=== PATIENT | male | born 1960 | race Caucasian/White ===

== ENCOUNTER 2019-04-22 08:42 | Emergency (ER) | payer OTHER ==
[~2019-04-22] VITALS: Ht 170.1 cm; Wt 71.0 kg
[2019-04-22] MEDS ORDERED: ACETAMINOPHEN 325 MG TABLET PO ONE (09:00)
[2019-04-22] MEDS ORDERED: METOCLOPRAMIDE 10 MG (REGLAN) TAB PO ONE (09:00)
[2019-04-22] MEDS ORDERED: NS IV 1000 ML 1,000 ML IV SCH (09:08)
--- NOTE | 2019-04-22 09:08 | ED Cardiac General ---
History of Present Illness General Stated Complaint: NAUSEA History of Present Illness Date Seen by Provider: Apr 22, 2019 Time Seen by Provider: 08:50 Initial Comments The patient is a 58-year-old male with a history of chronic right shoulder pain for which he takes periodic [place]. Patient presents via EMS with a chief complaint of nausea with onset last evening. Patient states he was in his normal state of health and had dinner without any problems and then took a [place] 10/325 for his chronic shoulder pain. After that he noted that he was nauseated. He did not frankly vomit. He had no other symptoms at that time. He then went to bed. When he woke up he was still nauseated so he decided to call EMS. He was administered Zofran sublingually in route per EMS and his nausea resolved. Currently the patient states that he has no symptoms at all aside from a slightly unsettled feeling in his stomach. He denies any fevers, nausea or vomiting, headache, focal weakness, numbness, tingling, neck stiffness, vision changes, shortness of breath or chest pain, abdominal pain of any kind, flank pain, back pain, dysuria or hematuria, changes in bowel habits. Patient appears in no distress and vital signs are appropriate upon initial evaluation in the emergency department. The patient is noted to nod off at times during conversation and seems a little sleepy. Pupils are rather pinpoint. Patient does deny taking any [place] aside from last evening. EMS state that they think he may have taken more [place] than he is admitting to. Allergies and Home Medications Allergies Coded Allergies: No Known Drug Allergies (Unverified , 04/22/19) Patient Home Medication List Home Medication List Reviewed: Yes Review of Systems Review of Systems Constitutional: see HPI All Other Systems Reviewed Negative Unless Noted: Yes (Negative excepted noted.) Past Erccrgk-Kdjefz-Ugaogj Hx Past Med/Social Hx: Reviewed Nursing Past Med/Soc Hx Patient Social History Recent Foreign Travel: No Family Medical History Reviewed Nursing Family Hx Physical Exam Vital Signs Vital Signs - First Documented 04/22/19 08:51 Temp 36.4 Pulse 74 Resp 18 B/P (MAP) 123/91 (102) Pulse Ox 99 O2 Delivery Room Air Capillary Refill : Height, Weight, BMI Height: '" Weight: lbs. oz. kg; BMI Method: General Appearance: No Apparent Distress Other comments This is an older male appearing nontoxic and in no acute distress. He seems a little sleepy but answers questions completely appropriately. Head is normocephalic and atraumatic. Neck is supple and nontender. Oropharynx is moist. Lungs clear to auscultation in all stations. There is a normal S1 and S2 without rubs or gallops and capillary refill is appropriate, less than 2 seconds globally. Abdomen is soft, nontender and nondistended. Skin is warm and dry without cyanosis, clubbing or edema. Psychiatrically, the patient demonstrates appropriate mood and affect and is alert. Neurologically, cranial nerves II through XII are intact and there are no lateralizing deficits noted. Speech is normal. Language is normal. Coordination is normal. There is no dysmetria finger to nose or [id number] bilaterally. Strength is 5 out of 5 in all joints of bilateral upper and lower extremities. Sensation is intact to light touch in bilateral upper and lower extremities. Patient ambulatory with a narrow, steady gait in the emergency department is is alert and oriented 4, though a little sleepy as noted. Examination of the left upper extremity is remarkable for mild tenderness without erythema, warmth or swelling to the left shoulder. No limitation in ranging of the left shoulder and no pain with ranging of any other joint of the left upper extremity which is neurovascularly intact distally. Progress/Results/Core Measures Results/Orders Lab Results Laboratory Tests Test 04/22/19 09:00 04/22/19 11:25 Range/Units White Blood Count 8.0 4.3-11.0 10^3/uL Red Blood Count 4.78 4.35-5.85 10^6/uL Hemoglobin 13.7 13.3-17.7 G/DL Hematocrit 43 40-54 % Mean Corpuscular Volume 89 80-99 FL Mean Corpuscular Hemoglobin 29 25-34 PG Mean Corpuscular Hemoglobin Concent 32 32-36 G/DL Red Cell Distribution Width 13.1 10.0-14.5 % Platelet Count 304 130-400 10^3/uL Mean Platelet Volume 8.4 7.4-10.4 FL Neutrophils (%) (Auto) 69 42-75 % Lymphocytes (%) (Auto) 20 12-44 % Monocytes (%) (Auto) 6 0-12 % Eosinophils (%) (Auto) 4 0-10 % Basophils (%) (Auto) 1 0-10 % Neutrophils # (Auto) 5.5 1.8-7.8 X 10^3 Lymphocytes # (Auto) 1.6 1.0-4.0 X 10^3 Monocytes # (Auto) 0.5 0.0-1.0 X 10^3 Eosinophils # (Auto) 0.3 0.0-0.3 10^3/uL Basophils # (Auto) 0.1 0.0-0.1 10^3/uL Sodium Level 137 135-145 MMOL/L Potassium Level 4.2 3.6-5.0 MMOL/L Chloride Level 101 98-107 MMOL/L Carbon Dioxide Level 26 21-32 MMOL/L Anion Gap 10 5-14 MMOL/L Blood Urea Nitrogen 12 7-18 MG/DL Creatinine 1.05 0.60-1.30 MG/DL Estimat Glomerular Filtration Rate > 60 BUN/Creatinine Ratio 11 Glucose Level 108 H 70-105 MG/DL Calcium Level 9.2 8.5-10.1 MG/DL Corrected Calcium 9.1 8.5-10.1 MG/DL Total Bilirubin 0.5 0.1-1.0 MG/DL Aspartate Amino Transf (AST/SGOT) 23 5-34 U/L Alanine Aminotransferase (ALT/SGPT) 14 0-55 U/L Alkaline Phosphatase 99 40-136 U/L Troponin I < 0.30 <0.30 NG/ML Total Protein 7.0 6.4-8.2 GM/DL Albumin 4.1 3.2-4.5 GM/DL Lipase 18 8-78 U/L Salicylates Level < 0.3 L 5.0-20.0 MG/DL Acetaminophen Level < 10 L 10-30 UG/ML Serum Alcohol < 10 <10 MG/DL Urine Color YELLOW Urine Clarity CLEAR Urine pH 6.5 5-9 Urine Specific [place] 1.020 1.016-1.022 Urine Protein NEGATIVE NEGATIVE Urine Glucose (UA) NEGATIVE NEGATIVE Urine Ketones NEGATIVE NEGATIVE Urine Nitrite NEGATIVE NEGATIVE Urine Bilirubin NEGATIVE NEGATIVE Urine Urobilinogen 0.2 < = 1.0 MG/DL Urine Leukocyte Esterase NEGATIVE NEGATIVE Urine RBC (Auto) NEGATIVE NEGATIVE Urine RBC NONE /HPF Urine WBC 0-2 /HPF Urine Squamous Epithelial Cells 0-2 /HPF Urine Crystals NONE /LPF Urine Bacteria NEGATIVE /HPF Urine Casts NONE /LPF Urine Mucus MODERATE H /LPF Urine Other FEW SPERM H /HPF Urine Culture Indicated NO Urine Opiates Screen NEGATIVE NEGATIVE Urine Oxycodone Screen NEGATIVE NEGATIVE Urine Methadone Screen NEGATIVE NEGATIVE Urine Propoxyphene Screen NEGATIVE NEGATIVE Urine Barbiturates Screen NEGATIVE NEGATIVE Ur Tricyclic Antidepressants Screen NEGATIVE NEGATIVE Urine Phencyclidine Screen NEGATIVE NEGATIVE Urine Amphetamines Screen POSITIVE H NEGATIVE Urine Methamphetamines Screen NEGATIVE NEGATIVE Urine Benzodiazepines Screen NEGATIVE NEGATIVE Urine Cocaine Screen NEGATIVE NEGATIVE Urine Cannabinoids Screen NEGATIVE NEGATIVE My Orders Orders - BURTON ASTORGA MD Comprehensive Metabolic Panel (04/22/19 09:00) Troponin I Fs (04/22/19 09:00) Ekg Tracing (04/22/19 09:00) Acetaminophen Tablet/Caplet (Tylenol T (04/22/19 09:00) Cbc With Automated Diff (04/22/19 09:08) Naloxone Injection (Narcan Injection) (04/22/19 09:15) Ketorolac Injection (Toradol Injection) (04/22/19 09:15) Metoclopramide Injection (Reglan Injecti (04/22/19 09:15) Ed Iv/Invasive Line Start (04/22/19 09:08) Ns Iv 1000 Ml (Sodium Chloride 0.9%) (04/22/19 09:08) Lipase (04/22/19 09:21) Ct Head Wo (04/22/19 09:40) Acetaminophen (04/22/19 09:40) Salicylate (04/22/19 09:40) Alcohol (04/22/19 09:40) Drug Screen Stat (Urine) (04/22/19 09:40) Chest 1 View Ap/Pa Only (04/22/19 09:40) Ua Culture If Indicated (04/22/19 09:40) Medications Given in ED Current Medications Medications Dose Ordered Sig/Mary Ellen Route Start Time Stop Time Status Last Admin Dose Admin Acetaminophen 975 mg ONCE ONCE PO 04/22/19 09:00 04/22/19 09:03 DC 04/22/19 09:13 975 MG Ketorolac Tromethamine 30 mg ONCE ONCE IVP 04/22/19 09:15 04/22/19 09:16 DC 04/22/19 09:20 30 MG Metoclopramide HCl 10 mg ONCE ONCE IVP 04/22/19 09:15 04/22/19 09:16 DC 04/22/19 09:20 10 MG Naloxone HCl 0.4 mg ONCE ONCE IV 04/22/19 09:15 04/22/19 09:16 DC 04/22/19 09:26 0.4 MG Vital Signs/I&O 04/22/19 08:51 Temp 36.4 Pulse 74 Resp 18 B/P (MAP) 123/91 (102) Pulse Ox 99 O2 Delivery Room Air Progress Progress Note : Time: 09:18 Progress Note Suspicion for sleepiness and nausea secondary to opiate use. We will place IV and check basic labs, troponin and EKG given nausea and will give IV antiemetic and a dose of Narcan and will observe for time and then reevaluate. If workup is reassuring and patient feels better, plan will be for discharge home to follow up very closely with primary care in the next 1-2 days. I have discussed with the patient that the first-line medication for periodic musculoskeletal shoulder discomfort would be a nonsteroidal anti-inflammatory such as ibuprofen. We will plan to prescribe some when and if the patient is released. Update 1000: No effect on patient's somnolence with Narcan. We will escalate workup with additional labs, urinalysis and urine toxicology studies, chest x- ray and CT of the head. Update 1130: Entire workup is unremarkable and reassuring aside from urine toxicology screen positive for amphetamines and opiates. Suspect side effects of multidrug use as a cause for the patient's significant somnolence. He is resting comfortably and remains appropriate arousable but as noted continues to be very somnolent. Do not feel comfortable releasing him at this time. We will proceed with observation admission to [facility]. Patient is graciously accepted for telemetry observation by Dr. Puri. Will initiate transfer at this time. Comment Sinus rhythm, rate 56, no acute ST elevation or depression, WI 145, QRS 90, QTC 422, EP interpretation. Departure Impression Primary Impression: Nausea alone Additional Impressions: Adverse effect of other opioids, initial encounter Methamphetamine abuse Disposition: ADMITTED INPATIENT Condition: Stable BURTON ASTORGA MD Apr 22, 2019 09:08 POS
[2019-04-22] MEDS ORDERED: NALOXONE 0.4 MG/ML 1 ML (NARCAN) VIAL IV ONE (09:15)
[2019-04-22] MEDS ORDERED: METOCLOPRAMIDE INJ 10 MG/2 ML (REGLAN) IVP ONE (09:15)
[2019-04-22] MEDS ORDERED: KETOROLAC 30 MG/ML VIAL IVP ONE (09:15)
[2019-04-22 09:23] LABS: HEMATOCRIT 43 % (40-54); HEMOGLOBIN 13.7 G/DL (13.3-17.7); MEAN CORPUSCULAR HEMOGLOBIN 29 PG (25-34); MEAN CORPUSCULAR HGB CONC 32 G/DL (32-36); MEAN CORPUSCULAR VOLUME 89 FL (80-99); MEAN PLATELET VOLUME 8.4 FL (7.4-10.4); PLATELET COUNT 304 10^3/uL (130-400); RED CELL DISTRIBUTION WIDTH 13.1 % (10.0-14.5)
[2019-04-22 09:24] LABS: BASOPHILS # (AUTO) 0.1 10^3/uL (0.0-0.1); BASOPHILS % (AUTO) 1 % (0-10); EOSINOPHILS # (AUTO) 0.3 10^3/uL (0.0-0.3); EOSINOPHILS % (AUTO) 4 % (0-10); LYMPHOCYTES # (AUTO) 1.6 X 10^3 (1.0-4.0); LYMPHOCYTES % (AUTO) 20 % (12-44); MONOCYTES # (AUTO) 0.5 X 10^3 (0.0-1.0); MONOCYTES % (AUTO) 6 % (0-12); NEUTROPHILS # (AUTO) 5.5 X 10^3 (1.8-7.8); NEUTROPHILS % (AUTO) 69 % (42-75)
[2019-04-22 09:50] LABS: ALANINE AMINOTRANSFERASE 14 U/L (0-55); ALKALINE PHOSPHATASE 99 U/L (40-136); BILIRUBIN,TOTAL 0.5 MG/DL (0.1-1.0); BUN/CREATININE RATIO 11; CALCIUM 9.2 MG/DL (8.5-10.1); CARBON DIOXIDE 26 MMOL/L (21-32); CHLORIDE 101 MMOL/L (98-107); CREATININE SERUM 1.05 MG/DL (0.60-1.30); GFR ESTIMATED > 60; GLUCOSE 108 MG/DL (70-105); POTASSIUM 4.2 MMOL/L (3.6-5.0); SODIUM 137 MMOL/L (135-145)
[2019-04-22 09:51] LABS: ALBUMIN 4.1 GM/DL (3.2-4.5)
[2019-04-22 10:10] LABS: ACETAMINOPHEN < 10 UG/ML (10-30); SALICYLATE < 0.3 MG/DL (5.0-20.0)
--- NOTE | 2019-04-22 10:19 | Diagnostic Imaging Report ---
INDICATION: Nausea. COMPARISON: None. FINDINGS: Single frontal view of the chest demonstrates normal heart size and pulmonary vascularity. The lungs are well aerated and clear. No large pleural effusion or pneumothorax is seen. The visualized osseous structures show no acute abnormalities. IMPRESSION: 1. No acute cardiopulmonary process. Dictated by: Dictated on workstation # [id number]
--- NOTE | 2019-04-22 10:21 | Diagnostic Imaging Report ---
PROCEDURE: CT head without contrast. TECHNIQUE: Multiple contiguous axial images were obtained through the brain without the use of intravenous contrast. Auto Exposure Controls were utilized during the CT exam to meet ALARA standards for radiation dose reduction. INDICATION: Hypersomnolence. FINDINGS: The examination is compromised due to motion. Ventricles and sulci are grossly within normal limits. No hydrocephalus. No midline shift. There is no mass, hemorrhage or extra-axial fluid collection. The calvarium is intact. Sinuses and mastoid air cells are clear. IMPRESSION: No acute intracranial abnormality although examination is technically limited due to motion artifact. Dictated by: Dictated on workstation # [id number]
[2019-04-22 12:01] LABS: AMPHETAMINE SCREEN, URINE POSITIVE (NEGATIVE); BARBITURATE SCREEN URINE NEGATIVE (NEGATIVE); BENZODIAZEPINES SCREEN URINE NEGATIVE (NEGATIVE); CANNABINOID SCREEN, URINE NEGATIVE (NEGATIVE); COCAINE SCREEN URINE NEGATIVE (NEGATIVE); METHADONE STAT NEGATIVE (NEGATIVE); METHAMPHETAMINE SCREEN URINE S NEGATIVE (NEGATIVE); OPIATE SCREEN URINE NEGATIVE (NEGATIVE); OXYCODONE STAT NEGATIVE (NEGATIVE); PROPOXYPHENE STAT NEGATIVE (NEGATIVE); TRICYCLIC ANTIDEPRESSANTS SCRE NEGATIVE (NEGATIVE)
[2019-04-22 12:02] LABS: BACTERIA,URINE NEGATIVE /HPF; BILIRUBIN,URINE NEGATIVE (NEGATIVE); CLARITY,URINE CLEAR; COLOR,URINE YELLOW; GLUCOSE, URINE (UA) NEGATIVE (NEGATIVE); KETONES,URINE NEGATIVE (NEGATIVE); LEUKOCYTE ESTERASE ,URINE NEGATIVE (NEGATIVE); NITRITE,URINE NEGATIVE (NEGATIVE); PH,URINE 6.5 (5-9); PROTEIN,URINE NEGATIVE (NEGATIVE); WBC,URINE 0-2 /HPF
[2019-04-22 12:03] LABS: SQUAMOUS EPITHELIAL CELL,UR 0-2 /HPF; URINE OTHER FEW SPERM /HPF
--- NOTE | 2019-04-22 12:30 | NUR ---
Call to Boiler Technician, Douglas HAYES to request room assignment.
--- NOTE | 2019-04-22 12:51 | NUR ---
Room rec'd via Tracker Board.
--- NOTE | 2019-04-22 12:55 | NUR ---
Pt refusal at this time to sign transfer form and requesting to speak with . Pt is wide awake and conversing with staff and states, "It was a combination of being tired and possibly dehydrated." IIf I am transferred, I have no one to come to this hospital to get ride out."
--- NOTE | 2019-04-22 13:05 | NUR ---
Dr Cox to room, orientation completed with pt slow to give an appropriate answer to date, place, President, year. Pt is refusing admit. Dr gave risks and benefits then agreed to this but advises of the importance to return if further concerns or sx.
--- NOTE | 2019-04-22 14:48 | NUR ---
Pt is noted to have his ride arrive and departing per POV from waiting area.
[2019-04-22 19:41] VITALS: BP 129/79
== END 2019-04-22 14:00 | disposition home or self-care (01) ==
LOC: ER FS 08:51 → 4TH 12:53 → UNDOADMOB 12:53
DX: R11.0 Nausea (principal); T40.2X5A Adverse effect of other opioids, initial encounter; T39.1X5A Adverse effect of 4-Aminophenol derivatives, initial encounter; F15.10 Other stimulant abuse, uncomplicated
CPT/HCPCS: 36415; 70450; 71045; 80053; 80306; 80320; 80329; 81000; 83690; 84484; 85025; 93005

== ENCOUNTER 2020-04-02 18:25 | Inpatient (IN) | payer SELFPAY ==
[~2020-04-02] VITALS: Ht 168 cm; Wt 62.9 kg
[2020-04-02] MEDS ORDERED: dilTIAZem DRIP PRE-MIX 125 ML IV ONE (18:40)
[2020-04-02] MEDS ORDERED: NS IV 1000 ML 1,000 ML ONE (18:40)
[2020-04-02 18:44] LABS: BASOPHILS # (AUTO) 0.1 10^3/uL (0.0-0.1); BASOPHILS % (AUTO) 0 % (0-10); EOSINOPHILS % (AUTO) 0 % (0-10); HEMATOCRIT 42 % (40-54); HEMOGLOBIN 13.1 g/dL (13.3-17.7); LYMPHOCYTES # (AUTO) 1.4 10^3/uL (1.0-4.0); LYMPHOCYTES % (AUTO) 6 % (12-44); MEAN CORPUSCULAR HEMOGLOBIN 29 pg (25-34); MEAN CORPUSCULAR HGB CONC 32 g/dL (32-36); MEAN CORPUSCULAR VOLUME 91 fL (80-99); MEAN PLATELET VOLUME 8.4 fL (9.0-12.2); MONOCYTES # (AUTO) 1.3 10^3/uL (0.0-1.0); MONOCYTES % (AUTO) 6 % (0-12); NEUTROPHILS # (AUTO) 20.7 10^3/uL (1.8-7.8); NEUTROPHILS % (AUTO) 86 % (42-75); PLATELET COUNT 179 10^3/uL (130-400); WHITE BLOOD COUNT 24.2 10^3/uL (4.3-11.0)
[2020-04-02] MEDS ORDERED: dilTIAZem DRIP PRE-MIX 125 ML IV SCH (18:45)
[2020-04-02] MEDS ORDERED: LACTATED RINGERS 1,000 ML IV ONE ×2 (18:49→22:43)
[2020-04-02 18:53] LABS: ALBUMIN 3.7 GM/DL (3.2-4.5); CHLORIDE 103 MMOL/L (98-107); POTASSIUM 3.7 MMOL/L (3.6-5.0); SODIUM 134 MMOL/L (135-145)
[2020-04-02 18:54] LABS: CALCIUM 8.4 MG/DL (8.5-10.1)
[2020-04-02 18:55] LABS: INR 1.2 (0.8-1.4)
[2020-04-02 18:56] LABS: GLUCOSE 89 MG/DL (70-105); TOTAL PROTEIN 6.5 GM/DL (6.4-8.2)
[2020-04-02 18:57] LABS: BILIRUBIN,TOTAL 1.1 MG/DL (0.1-1.0); CARBON DIOXIDE 24 MMOL/L (21-32)
[2020-04-02 18:59] LABS: ALKALINE PHOSPHATASE 80 U/L (40-136); CREATININE SERUM 1.04 MG/DL (0.60-1.30); GFR ESTIMATED > 60
[2020-04-02 19:00] LABS: BUN/CREATININE RATIO 16
[2020-04-02 19:01] LABS: BAND NEUTROPHILS 3 %; BASOPHILS % (MANUAL) 0 %; EOSINOPHILS % (MANUAL) 0 %; LYMPHOCYTES % (MANUAL) 4 %; MONOCYTES % (MANUAL) 4 %; NEUTROPHILS % (MANUAL) 89 %; RBC MORPH NORMAL
[2020-04-02 19:02] LABS: ALANINE AMINOTRANSFERASE 14 U/L (0-55); MAGNESIUM 2.1 MG/DL (1.6-2.4)
--- NOTE | 2020-04-02 19:06 | ED Cardiac General ---
History of Present Illness General Stated Complaint: SVT Source: patient Exam Limitations: no limitations History of Present Illness Date Seen by Provider: Apr 02, 2020 Time Seen by Provider: 18:22 Initial Comments Here by EMS from [facility] with report of SVT. Noted to have heart rate greater than 160 by EMS. They did give adenosine and rate slowed briefly and atrial flutter was noted. Patient also complaining of chest pain so they came directly to [facility] center given concerns. Patient reports that he's had 2-3 days of intermittent chest pain that worsened this evening requiring EMS. EMS did give 324 mg of aspirin by mouth and initiated normal saline 1 L bolus. Patient does work as a electronic system engineer and reports that he's probably dehydrated. He has recently started drinking coffee again and using Powerade. He states that that amps him up quite a bit though and that may be part of the problem. Never had problems with atrial fibrillation/flutter or other heart problems previously. 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 Denies nausea, vomiting or diarrhea. Denies fever or chills or COVID-19 contact or symptoms. Timing/Duration: getting worse, intermittent, 2-3 days Severity: moderate Location: central (left sided) Activities at Onset: none Prior CP/Workup: no prior chest pain, no prior cardiac workup Modifying Factors: worse with exercise; improves with rest NTG SL CODING VALIDATOR: No ASA po CODING VALIDATOR: Yes Associated Systoms: Chest Pain; No Diaphoresis, No Fever/Chills, No Nausea/Vomiting, No Shortness of Air, No Weakness Allergies and Home Medications Allergies Coded Allergies: No Known Drug Allergies (Unverified , 04/22/19) Patient Home Medication List Home Medication List Reviewed: Yes Review of Systems Review of Systems Constitutional: see HPI; No chills, No fever EENTM: No Symptoms Reported Respiratory: Denies Cough, Denies Shortness of Air Cardiovascular: Chest Pain; Denies Edema; Irregular Heart Rate, Lightheadedness Gastrointestinal: Denies Nausea, Denies Vomiting Genitourinary: No Symptoms Reported Musculoskeletal: no symptoms reported Skin: no symptoms reported Psychiatric/Neurological: No Symptoms Reported All Other Systems Reviewed Negative Unless Noted: Yes Past Ccptwiu-Bomdsd-Pnhxrh Hx Past Med/Social Hx: Reviewed Nursing Past Med/Soc Hx Patient Social History Alcohol Use: Denies Use Recreational Drug Use: No Smoking Status: Current Everyday Smoker 2nd Hand Smoke Exposure: No Recent Hopitalizations: No Seasonal Allergies Seasonal Allergies: No Past Medical History Surgeries: Yes (Bilateral Total Hip Replacement) Orthopedic Respiratory: No Cardiac: No Neurological: No Genitourinary: No Gastrointestinal: No Musculoskeletal: Yes (Chronic shoulder/hip pain) Endocrine: No HEENT: No Cancer: No Psychosocial: No Blood Disorders: No Family Medical History Reviewed Nursing Family Hx No Pertinent Family Hx Physical Exam Vital Signs Capillary Refill : Height, Weight, BMI Height: '" Weight: lbs. oz. kg; 24.00 BMI Method: General Appearance: No Apparent Distress, Thin HEENT: PERRL/EOMI, Pharynx Normal Neck: Non Tender, Supple Respiratory: No Accessory Muscle Use, No Respiratory Distress, Pleural Rub (left sided) Cardiovascular: Irregularly Irregular, Tachycardia Gastrointestinal: Normal Bowel Sounds Extremity: Normal Range of Motion, Non Tender Neurologic/Psychiatric: Alert, Oriented x3 Skin: Normal Color, Warm/Dry Progress/Results/Core Measures Results/Orders Lab Results Laboratory Tests Test 04/02/20 18:38 Range/Units White Blood Count 24.2 H 4.3-11.0 10^3/uL Red Blood Count 4.59 4.30-5.52 10^6/uL Hemoglobin 13.1 L 13.3-17.7 g/dL Hematocrit 42 40-54 % Mean Corpuscular Volume 91 80-99 fL Mean Corpuscular Hemoglobin 29 25-34 pg Mean Corpuscular Hemoglobin Concent 32 32-36 g/dL Red Cell Distribution Width 13.8 10.0-14.5 % Platelet Count 179 130-400 10^3/uL Mean Platelet Volume 8.4 L 9.0-12.2 fL Immature Granulocyte % (Auto) 3 % Neutrophils (%) (Auto) 86 H 42-75 % Lymphocytes (%) (Auto) 6 L 12-44 % Monocytes (%) (Auto) 6 0-12 % Eosinophils (%) (Auto) 0 0-10 % Basophils (%) (Auto) 0 0-10 % Neutrophils # (Auto) 20.7 H 1.8-7.8 10^3/uL Lymphocytes # (Auto) 1.4 1.0-4.0 10^3/uL Monocytes # (Auto) 1.3 H 0.0-1.0 10^3/uL Eosinophils # (Auto) 0.0 0.0-0.3 10^3/uL Basophils # (Auto) 0.1 0.0-0.1 10^3/uL Immature Granulocyte # (Auto) 0.7 H 0.0-0.1 10^3/uL Neutrophils % (Manual) 89 % Lymphocytes % (Manual) 4 % Monocytes % (Manual) 4 % Eosinophils % (Manual) 0 % Basophils % (Manual) 0 % Band Neutrophils 3 % Blood Morphology Comment NORMAL Prothrombin Time 16.0 H 12.2-14.7 SEC INR Comment 1.2 0.8-1.4 Activated Partial Thromboplast Time 35 24-35 SEC D-Dimer 0.57 H 0.00-0.49 UG/ML Sodium Level 134 L 135-145 MMOL/L Potassium Level 3.7 3.6-5.0 MMOL/L Chloride Level 103 98-107 MMOL/L Carbon Dioxide Level 24 21-32 MMOL/L Anion Gap 7 5-14 MMOL/L Blood Urea Nitrogen 17 7-18 MG/DL Creatinine 1.04 0.60-1.30 MG/DL Estimat Glomerular Filtration Rate > 60 BUN/Creatinine Ratio 16 Glucose Level 89 70-105 MG/DL Calcium Level 8.4 L 8.5-10.1 MG/DL Corrected Calcium 8.6 8.5-10.1 MG/DL Magnesium Level 2.1 1.6-2.4 MG/DL Total Bilirubin 1.1 H 0.1-1.0 MG/DL Aspartate Amino Transf (AST/SGOT) 21 5-34 U/L Alanine Aminotransferase (ALT/SGPT) 14 0-55 U/L Alkaline Phosphatase 80 40-136 U/L Myoglobin 119.6 H 10.0-92.0 NG/ML Troponin I < 0.028 <0.028 NG/ML Total Protein 6.5 6.4-8.2 GM/DL Albumin 3.7 3.2-4.5 GM/DL My Orders Orders - ALTHEA WASHINGTON MD Cbc With Automated Diff (04/02/20 18:36) Magnesium (04/02/20 18:36) Chest 1 View, Ap/Pa Only (04/02/20 18:36) Ekg Tracing (04/02/20 18:36) Comprehensive Metabolic Panel (04/02/20 18:36) Myoglobin Serum (04/02/20 18:36) Protime With Inr (04/02/20 18:36) Partial Thromboplastin Time (04/02/20 18:36) O2 (04/02/20 18:36) Monitor-Rhythm Ecg Trace Only (04/02/20 18:36) Lipid Panel (04/03/20 06:00) Ed Iv/Invasive Line Start (04/02/20 18:36) Troponin I (04/02/20 18:36) Fibrin Degradation Products (04/02/20 18:36) Diltiazem Drip Pre-Mix (Cardizem Drip Pr (04/02/20 18:45) Diltiazem Injection (Cardizem Injection) (04/02/20 18:45) Diltiazem Drip Pre-Mix (Cardizem Drip Pr (04/02/20 18:40) Ns Iv 1000 Ml (Sodium Chloride 0.9%) (04/02/20 18:40) Diltiazem Injection (Cardizem Injection) (04/02/20 18:40) Manual Differential (04/02/20 18:38) Lactated Ringers (Lr 1000 Ml Iv Solution (04/02/20 18:49) Enoxaparin Injection (Lovenox Injection) (04/02/20 19:15) Metoprolol Tartrate Injection (Lopressor (04/02/20 19:30) Morphine Injection (Morphine Injection (04/02/20 19:45) Medications Given in ED Current Medications Medications Dose Ordered Sig/[place] Route Start Time Stop Time Status Last Admin Dose Admin Diltiazem HCl 20 mg ONCE ONCE IVP 04/02/20 18:45 04/02/20 18:46 DC 04/02/20 18:43 20 MG Enoxaparin Sodium 60 mg ONCE ONCE SC 04/02/20 19:15 04/02/20 19:16 DC 04/02/20 19:33 60 MG Lactated Ringer's 1,000 ml @ 0 mls/hr Q0M ONCE IV 04/02/20 18:49 04/02/20 18:50 DC 04/02/20 18:57 1,000 MLS/HR Sodium Chloride 1,000 ml @ ud STK-MED ONCE .ROUTE 04/02/20 18:40 04/02/20 18:41 DC 04/02/20 18:55 1,000 MLS/HR Progress Progress Note : Progress Note Seen and evaluated. IV 2 by EMS. EMS 1 L bolus initiated by EMS. Cardizem bolus 20 mg IV initiated with drip at 10 mg per hour to follow. 1904: I did discuss the case with Dr. Marie and he agrees to consult and recommends Lovenox 1 mg/kg which will be ordered. He will see the patient in the emergency department. I have discussed the case with Dr. Cerda and she agrees to admission, inpatient status to ICU or stepdown depending on nursing protocols. 1929: Patient is otherwise stable and troponin is negative. Okay for cardiac step down. Cardizem drip running at 10 mg per hour currently. He is having some chest pain so morphine 4 mg IV ordered. Blood pressure is normal. Patient agrees to admission. Admit, inpatient status. Initial ECG Impression Date: Apr 02, 2020 Initial ECG Impression Time: 18:26 Initial ECG Rate: 154 Initial ECG Rhythm: A Fib/Flutter Initial ECG Impression: Atrial Fibrillation w/RVR Comment A flutter with rapid ventricular response. Left axis deviation. No evidence of ST elevation IN. No previous available for comparison. Interpreted by me. EKG : EKG Time: 18:56 Rhythm: A Fib/Flutter ECG Comparisson: Changed Comment Atrial flutter with normal axis. Normal rate. No evidence of ST elevation IN. Intraventricular conduction delay noted. Change from previous. Interpreted by me. Diagnostic Imaging Diagonstic Imaging: Xray Plain Films/CT/US/NM/MRI: chest Comments [facility], [place], [place] NAME: MARIELISANDRA Melissa [facility] REC#: [id number] PT STATUS: REG ER : 1960 PHYSICIAN: ALTHEA WASHINTGON MD ADMIT DATE: 04/02/20/ER Draft Date of Exam:04/02/20 CHEST 1 VIEW, AP/PA ONLY EXAM: Chest 1 view, AP/PA only. INDICATION: Chest pain. COMPARISON: 04/22/2019 chest radiograph. FINDINGS: Normal heart size and central pulmonary vascularity. No focal pulmonary opacity. No pleural effusion or pneumothorax. No acute osseous finding. No significant change. IMPRESSION: No acute cardiopulmonary finding. Dictated on workstation # [id number] Dict: 04/02/201920 Trans: 04/02/201921 [facility] [id number] Interpreted by: SAMUEL CERVANTES MD Electronically signed by: Departure Communication (Admissions) Time/Spoke to Admitting Phy: 18:55 Time/Spoke to Consulting Phy: 19:05 Impression Primary Impression: Atrial flutter with rapid ventricular response Additional Impression: Chest pain Qualified Codes: R07.9 - Chest pain, unspecified Disposition: ADMITTED INPATIENT Condition: Stable Admissions Decision to Admit Reason: Admit from ER (General) Decision to Admit/Date: Apr 02, 2020 Time/Decision to Admit Time: 18:50 Departure-Patient Inst. Referrals: VERENICE KANG MD (PCP/Family) Primary Care Physician ALTHEA WASHINGTON MD Apr 02, 2020 19:06
[2020-04-02] MEDS ORDERED: ENOXAPARIN 60 MG/0.6 ML (LOVENOX) SYR SC ONE (19:15)
--- NOTE | 2020-04-02 19:23 | Diagnostic Imaging Report ---
EXAM: Chest 1 view, AP/PA only. INDICATION: Chest pain. COMPARISON: 04/22/2019 chest radiograph. FINDINGS: Normal heart size and central pulmonary vascularity. No focal pulmonary opacity. No pleural effusion or pneumothorax. No acute osseous finding. No significant change. IMPRESSION: No acute cardiopulmonary finding. Dictated by: Dictated on workstation # [id number]
[2020-04-02] MEDS ORDERED: meTOprolol 5 MG/5 ML (LOPRESSOR) VIAL IV ONE ×2 (19:30→23:15)
--- NOTE | 2020-04-02 19:37 | Consultation-Cardiology ---
HPI-Cardiology Cardiology Consultation Date of Consultation 04/02/20 Date of Admission Time Seen by Provider: 19:34 Indication: chest pain HPI 59 years old gentleman with no significant past medical history who exercise daily walk about 5 miles without difficulty. Started to have palpitation, felt his heart racing and had some chest pain and heaviness in the retrosternal area. Came into the emergency room and noted to be in atrial flutter with rapid ventricular response. On my evaluation his rate was variable between 80 and 130, he had received one dose of IV Cardizem 20 mg and planning to initiate Cardizem drip. Started to have chest pain once his heart rate was 113 and felt somewhat better after his heart rate improved. No similar episodes in the past. No previous history of palpitation or any other symptoms. Home Medications & Allergies Allergies: Coded Allergies: No Known Drug Allergies (Unverified , 04/22/19) Home Medication List Reviewed: Yes Doesn't take any medication at home QIW-Wyjdih-Ggdoyv Hx Patient Social History Marital Status: Alcohol Use: Denies Use Recreational Drug Use: No Smoking Status: Current Everyday Smoker 2nd Hand Smoke Exposure: No Recent Hopitalizations: No Past Medical History No known past medical history Family Medical History Significant Family History: No Pertinent Family Hx Family Medical Hx Noncontributory Review of Systems-General Review of Systems Constitutional: see HPI; No chills, No fever EENTM: see HPI, no symptoms reported Respiratory: see HPI; No cough, No dyspnea on exertion, No hemoptysis, No orthopnea, No phlegm, No short of breath, No stridor, No wheezing, No other Cardiovascular: see HPI, chest pain; No edema, No Hx of Intervention; palpitations; No syncope, No vascular heart diseas, No other Gastrointestinal: no symptoms reported, see HPI Genitourinary: no symptoms reported, see HPI Musculoskeletal: no symptoms reported, see HPI Skin: no symptoms reported, see HPI Psychiatric/Neurological: No Symptoms Reported, See HPI All Other Systems Reviewed Negative Unless Noted: Yes Reviewed Test Results Reviewed Test Results Lab Laboratory Tests Test 04/02/20 18:38 Range/Units White Blood Count 24.2 H 4.3-11.0 10^3/uL Red Blood Count 4.59 4.30-5.52 10^6/uL Hemoglobin 13.1 L 13.3-17.7 g/dL Hematocrit 42 40-54 % Mean Corpuscular Volume 91 80-99 fL Mean Corpuscular Hemoglobin 29 25-34 pg Mean Corpuscular Hemoglobin Concent 32 32-36 g/dL Red Cell Distribution Width 13.8 10.0-14.5 % Platelet Count 179 130-400 10^3/uL Mean Platelet Volume 8.4 L 9.0-12.2 fL Immature Granulocyte % (Auto) 3 % Neutrophils (%) (Auto) 86 H 42-75 % Lymphocytes (%) (Auto) 6 L 12-44 % Monocytes (%) (Auto) 6 0-12 % Eosinophils (%) (Auto) 0 0-10 % Basophils (%) (Auto) 0 0-10 % Neutrophils # (Auto) 20.7 H 1.8-7.8 10^3/uL Lymphocytes # (Auto) 1.4 1.0-4.0 10^3/uL Monocytes # (Auto) 1.3 H 0.0-1.0 10^3/uL Eosinophils # (Auto) 0.0 0.0-0.3 10^3/uL Basophils # (Auto) 0.1 0.0-0.1 10^3/uL Immature Granulocyte # (Auto) 0.7 H 0.0-0.1 10^3/uL Neutrophils % (Manual) 89 % Lymphocytes % (Manual) 4 % Monocytes % (Manual) 4 % Eosinophils % (Manual) 0 % Basophils % (Manual) 0 % Band Neutrophils 3 % Blood Morphology Comment NORMAL Prothrombin Time 16.0 H 12.2-14.7 SEC INR Comment 1.2 0.8-1.4 Activated Partial Thromboplast Time 35 24-35 SEC D-Dimer 0.57 H 0.00-0.49 UG/ML Sodium Level 134 L 135-145 MMOL/L Potassium Level 3.7 3.6-5.0 MMOL/L Chloride Level 103 98-107 MMOL/L Carbon Dioxide Level 24 21-32 MMOL/L Anion Gap 7 5-14 MMOL/L Blood Urea Nitrogen 17 7-18 MG/DL Creatinine 1.04 0.60-1.30 MG/DL Estimat Glomerular Filtration Rate > 60 BUN/Creatinine Ratio 16 Glucose Level 89 70-105 MG/DL Calcium Level 8.4 L 8.5-10.1 MG/DL Corrected Calcium 8.6 8.5-10.1 MG/DL Magnesium Level 2.1 1.6-2.4 MG/DL Total Bilirubin 1.1 H 0.1-1.0 MG/DL Aspartate Amino Transf (AST/SGOT) 21 5-34 U/L Alanine Aminotransferase (ALT/SGPT) 14 0-55 U/L Alkaline Phosphatase 80 40-136 U/L Myoglobin 119.6 H 10.0-92.0 NG/ML Troponin I < 0.028 <0.028 NG/ML Total Protein 6.5 6.4-8.2 GM/DL Albumin 3.7 3.2-4.5 GM/DL Physical Exam Physical Exam Vital Signs Capillary Refill : Height, Weight, BMI Height: '" Weight: lbs. oz. kg; 24.00 BMI Method: General Appearance: No Apparent Distress, Thin Eyes: Bilateral Eye Normal Inspection, Bilateral Eye PERRL, Bilateral Eye EOMI HEENT: PERRL/EOMI, Pharynx Normal Neck: Non Tender, Supple Respiratory: No Accessory Muscle Use, No Respiratory Distress, Pleural Rub (left sided) Cardiovascular: No Murmur, Irregularly Irregular, Tachycardia Gastrointestinal: Normal Bowel Sounds Back: Normal Inspection, No CVA Tenderness, No Vertebral Tenderness Extremity: Normal Range of Motion, Non Tender Neurologic/Psychiatric: Alert, Oriented x3 Skin: Normal Color, Warm/Dry Lymphatic: No Adenopathy A/P-Cardiology Admission Diagnosis Atrial flutter Tachycardia Chest pain Hypertension Assessment/Plan Atrial flutter with rapid ventricular response, started on diltiazem. I will add Lovenox. Continue to monitor heart rate and adjusted according to heart rate. Palpitation, secondary to tachycardia. Continue to monitor Chest pain, probably secondary to tachycardia, I will continue to monitor cardiac enzymes, EKG did not show any acute changes Hypertension, monitor blood pressure after initiating Cardizem. Clinical Quality Measures AMI/AHF: ASA po Prior to arrival: Yes MICHELLE HILLMAN MD Apr 02, 2020 19:37
[2020-04-02] MEDS ORDERED: morphine INJ 10 MG/ML 1ML (SYR OR VIAL) IVP ONE (19:45)
[2020-04-02] MEDS ORDERED: ENOXAPARIN 100 MG/1 ML (LOVENOX) SYR SC SCH (19:45)
[2020-04-02 21:21] LABS: AMPHETAMINE SCREEN, URINE POSITIVE (NEGATIVE); BARBITURATE SCREEN URINE NEGATIVE (NEGATIVE); BENZODIAZEPINES SCREEN URINE NEGATIVE (NEGATIVE); CANNABINOID SCREEN, URINE NEGATIVE (NEGATIVE); COCAINE SCREEN URINE NEGATIVE (NEGATIVE); METHADONE STAT NEGATIVE (NEGATIVE); METHAMPHETAMINE SCREEN URINE S POSITIVE (NEGATIVE); OPIATE SCREEN URINE POSITIVE (NEGATIVE); OXYCODONE STAT NEGATIVE (NEGATIVE); PROPOXYPHENE STAT NEGATIVE (NEGATIVE); TRICYCLIC ANTIDEPRESSANTS SCRE NEGATIVE (NEGATIVE)
[2020-04-02 22:05] VITALS: BP 98/68
[2020-04-02 22:15] VITALS: BP 94/48
--- NOTE | 2020-04-02 22:23 | NUR ---
THIS RN NOTIFIED DR. MELGOZA OF PATIENT'S LOW GRADE FEVER AND CP 01/17. NEW ORDERS RECEIVED AT THIS TIME, SEE ORDER HX.
[2020-04-02 22:30] VITALS: BP 88/62
[2020-04-02] MEDS ORDERED: ACETAMINOPHEN 500 MG TAB (TYLENOL) ONE (22:43)
[2020-04-02 22:45] VITALS: BP 104/68
[2020-04-02] MEDS ORDERED: LACTATED RINGERS 1,000 ML IV SCH (22:45)
[2020-04-02 23:00] VITALS: BP 126/79
[2020-04-02] MEDS ORDERED: morphine INJ 4 MG/ML 1 ML (VIAL/SYRINGE) IV PRN (23:00)
[2020-04-02] MEDS ORDERED: ONDANSETRON 4 MG/2 ML (SDV) Z0FRAN IVP PRN (23:00)
[2020-04-02] MEDS ORDERED: NITROGLYCERIN 0.4 MG SL TABS BTL 25'S SL PRN (23:00)
[2020-04-02] MEDS ORDERED: meTOprolol 5 MG/5 ML (LOPRESSOR) VIAL ONE (23:12)
--- NOTE | 2020-04-02 23:15 | NUR ---
DR. HILLMAN NOTIFIED OF PATIENT'S CONTINUED CHEST PAIN 01/17, AND PATIENT'S DECREASED SBP ON CARDIZEM DRIP, SBP IN 80'S. DR. HILLMAN AT BEDSIDE AT THIS TIME. NEW ORDERS RECEIVED AT THIS TIME, SEE ORDER HX AND EMAR.
[2020-04-02] MEDS: ACETAMINOPHEN 500 MG TAB (TYLENOL) PO PRN (23:35)
[2020-04-03] VITALS (20 sets, daily range): BP systolic 88–127; BP diastolic 50–88
[2020-04-03] MEDS ORDERED: LACTATED RINGERS 1,000 ML IV ONE
[2020-04-03] MEDS: LACTATED RINGERS 1,000 ML IV SCH ×3 (01:10→21:00)
--- NOTE | 2020-04-03 01:15 | NUR ---
THIS RN NOTIFIED DR. MELGOZA OF PATIENT'S INCREASING TEMPERATURE OF 102.2 DEGREES FAHRENHEIT DESPITE 500MG PO TYLENOL GIVEN AT 2335. NEW ORDER RECEIVED FOR MOTRIN 600MG PO Q6HR. SEE ORDER HX.
[2020-04-03] MEDS: IBUPROFEN 600 MG (MOTRIN) TAB PO PRN ×3 (01:51→16:26)
[2020-04-03 05:57] LABS: BASOPHILS % (AUTO) 0 % (0-10); EOSINOPHILS % (AUTO) 0 % (0-10); HEMATOCRIT 39 % (40-54); HEMOGLOBIN 12.5 g/dL (13.3-17.7); LYMPHOCYTES # (AUTO) 1.6 10^3/uL (1.0-4.0); LYMPHOCYTES % (AUTO) 9 % (12-44); MEAN CORPUSCULAR HEMOGLOBIN 29 pg (25-34); MEAN CORPUSCULAR HGB CONC 32 g/dL (32-36); MEAN CORPUSCULAR VOLUME 90 fL (80-99); MEAN PLATELET VOLUME 9.4 fL (9.0-12.2); MONOCYTES # (AUTO) 0.7 10^3/uL (0.0-1.0); MONOCYTES % (AUTO) 4 % (0-12); NEUTROPHILS # (AUTO) 13.8 10^3/uL (1.8-7.8); NEUTROPHILS % (AUTO) 83 % (42-75); PLATELET COUNT 161 10^3/uL (130-400); WHITE BLOOD COUNT 16.6 10^3/uL (4.3-11.0)
[2020-04-03 06:23] LABS: ALANINE AMINOTRANSFERASE 12 U/L (0-55); ALBUMIN 3.1 GM/DL (3.2-4.5); ALKALINE PHOSPHATASE 69 U/L (40-136); BILIRUBIN,TOTAL 1.2 MG/DL (0.1-1.0); BUN/CREATININE RATIO 14; CALCIUM 8.4 MG/DL (8.5-10.1); CARBON DIOXIDE 22 MMOL/L (21-32); CHLORIDE 105 MMOL/L (98-107); CHOLESTEROL 116 MG/DL (< 200); CREATININE SERUM 0.87 MG/DL (0.60-1.30); GFR ESTIMATED > 60; GLUCOSE 96 MG/DL (70-105); HDL CHOLESTEROL 45 MG/DL (40-60); POTASSIUM 3.7 MMOL/L (3.6-5.0); SODIUM 136 MMOL/L (135-145); TOTAL PROTEIN 5.7 GM/DL (6.4-8.2); TRIGLYCERIDES 65 MG/DL (<150); VLDL CHOLESTEROL 13 MG/DL (5-40)
[2020-04-03] MEDS ORDERED: ENOXAPARIN 80 MG/0.8 ML (LOVENOX) SYR SC SCH (07:30)
[2020-04-03] MEDS ORDERED: FLU QUADRIvalent (3YOA+) 60 mcg/0.5 ml 2020-21 (AFLURIA) IM ONE (07:45)
--- NOTE | 2020-04-03 08:16 | NUR ---
TEMP-39.1. COVID SWAB DONE. Addendum: 04/03/20 at 1618 by KIP GO RN THIS IS 16 TEMP Addendum: 04/03/20 at 1620 by KIP GO RN TEMP AT 0816 IS 38.4
[2020-04-03] MEDS: ACETAMINOPHEN 500 MG TAB (TYLENOL) PO PRN ×2 (08:19→17:18)
[2020-04-03] MEDS: ASPIRIN E.C. 81 MG (ECOTRIN) TAB PO SCH (08:19)
--- NOTE | 2020-04-03 09:00 | NUR ---
TEMP 39.1 MOTRIN AND TYLENOL GIVEN FOR FEVER. CONT TO C/O OF LEFT CHEST PAIN ESPECIALLY WHEN DEEP BREATHING.
--- NOTE | 2020-04-03 09:05 | History & Physical-Hospitalist ---
VYASIsatuCOLINEMEKA, 04/03/20 0905: History of Present Illness HPI/Chief Complaint Mr. Hart is a 59-year-old male who presented to the [facility] ED via EMS from [place]. He has been having chest pain for 2 days and yesterday it worsened, so he called EMS. He states that it is worse when he tries to breathe or talk. Morphine from the ER made it better but nothing else has. He does admit to nausea but denies vomiting. He localizes his chest pain to the left side of his chest around the ridge of his pec. He rates it an 8-9/10 and denies radiation of the pain. He describes it as "someone standing on my chest". He also has right hand and left arm numbness, blurry vision, headache. Denies sore throat. No previous occurrence. Today, he as a little less pain, but more flatulence than usual. He also states it helps him to stay warm. Source: patient Exam Limitations: no limitations Date Seen 04/03/20 Time Seen by a Provider: 08:30 Attending Physician Toya Cerda MD PCP Celso Mg MD Referring Physician Date of Admission Apr 02, 2020 at 19:54 Home Medications & Allergies Home Medications Reviewed patient Home Medication Reconciliation performed by pharmacy medication reconciliations solar field service technician and/or nursing. Patients Allergies have been reviewed. Allergies Allergies Coded Allergies No Known Drug Allergies (Qgyxnemlzo34/13/19) Past Jrymdnx-Ganhvk-Qgwpik Hx Past Med/Social Hx: Reviewed Nursing Past Med/Soc Hx Patient Social History Marrital Status: Alcohol Use: Occasionally Uses Alcohol Beverage of Choice: Beer, Whiskey Recreational Drug Use: Yes Drug of Choice: Pt denies current use but 04/02/2020 UDS pos for amphetamines and opiates Smoking Status: Current Everyday Smoker Type Used: Cigarettes 2nd Hand Smoke Exposure: No Recent Foreign Travel: No Contact w/other who traveled: No Recent Hopitalizations: No Recent Infectious Disease Expo: No Seasonal Allergies Seasonal Allergies: No Past Medical History Surgeries: Orthopedic (bilateral hip replacements) History of Blood Disorders: No Family History Reviewed Nursing Family Hx Cancer (father had NSCLC), CAD Over 55 Years Old (mother from [place]), Diabetes (most family members) Review of Systems Constitutional: chills, fever EENTM: No nose congestion, No throat pain Respiratory: No cough; short of breath (from pain) Cardiovascular: chest pain, palpitations Gastrointestinal: nausea; No vomiting Genitourinary: No dysuria, No frequency Musculoskeletal: No muscle pain, No muscle weakness Skin: No dryness, No rash Psychiatric/Neurological: Headache, Numbness Physical Exam Physical Exam Vital Signs Vital Signs - First Documented Capillary Refill : Less Than 3 Seconds Height, Weight, BMI Height: '" Weight: lbs. oz. kg; 23.13 BMI Method: General Appearance: No Apparent Distress, WD/WN HEENT: PERRL/EOMI, Pharynx Normal, Other (missing a few teeth) Neck: Non Tender, Supple Respiratory: Lungs Clear, Normal Breath Sounds Cardiovascular: No Murmur, Irregularly Irregular Gastrointestinal: Normal Bowel Sounds, Non Tender, Soft Extremity: Normal Capillary Refill, No Pedal Edema, Other (fresh wounds on bilateral lower extremities) Neurologic/Psychiatric: Alert, Oriented x3, Normal Mood/Affect Skin: Normal Color, Warm/Dry Results Results/Procedures Labs Laboratory Tests 04/02/20 18:38 04/03/20 05:02 Patient resulted labs reviewed. Imaging: Reviewed Imaging Report Imaging NAME: LISANDRA HART [facility] REC#: [id number] PT STATUS: ADM IN : 1960 PHYSICIAN: ALTHEA WASHINGTON MD ADMIT DATE: 04/02/20/[facility] Signed Date of Exam:04/02/20 CHEST 1 VIEW, AP/PA ONLY EXAM: Chest 1 view, AP/PA only. INDICATION: Chest pain. COMPARISON: 04/22/2019 chest radiograph. FINDINGS: Normal heart size and central pulmonary vascularity. No focal pulmonary opacity. No pleural effusion or pneumothorax. No acute osseous finding. No significant change. IMPRESSION: No acute cardiopulmonary finding. Dictated by: Dictated on workstation # [id number] Dict: 04/02/201920 Trans: 04/02/202217 [facility] [id number] Interpreted by: SAMUEL CERVANTES MD Electronically signed by: SAMUEL CERVANTES MD 04/02/202217 Assessment/Plan Assessment and Plan 1. Atrial fibrillation with RVR * Patient presented to the ED for chest pain * EKG revealed atrial fibrillation with RVR * Cardiology consulted while in ED, appreciate their assistance * Started on cardizem drip and Lovenox * Tele * CHADsVASc 0 * HASBLED 1 * TSH ordered 2. Fever of unknown origin * Patient has spiked a fever during stay * CXR revealed no acute cardiopulmonary changes * Patient denies cough, congestion, sore throat and states he has no known COVID-19 contacts * COVID negative, will swab for flu A & B * Monitor closely * Tylenol and Motrin available as antipyretics 3. Polysubstance abuse * Patient denies current use of methamphetamines * UDS in ED was positive for amphetamines and opiates * Given morphine in ED and appears this was given prior to UDS * Will encourage complete cessation * Will order HIV and hepatitis panels given positive UDS - no protein gap on labs 4. Tobacco abuse * Patient states he began smoking cigarettes 1 year ago * Will encourage complete cessation Diet: heart healthy PPx: lovenox FULL CODE Clinical Quality Measures AMI/AHF: ASA po Prior to arrival: Yes DVT/VTE Risk/Contraindication: Risk Factor Score Per Nursin RFS Level Per Nursing on Admit: 2=Moderate CARMITA COSBY MD 04/03/20 0953: Assessment/Plan Admission Diagnosis A. fib with RVR Chest pain Febrile illness of uncertain etiology-chest x-ray shows a left lower lobe infiltrate-will start Zithromax max and Rocephin to cover both Streptococcus pneumonia and mycoplasma pneumonia as COVID and flu a and B are both negative Tobaccoism non-curtailed History of drug use with positive urine drug screen will screen for HIV and hepatitis C Admission Status: Observation Supervisory-Addendum Brief Verification & Attestation Participated in pt care: history, physical Personally performed: exam, history, supervision of care Care discussed with: Medical Student Procedures: n/a Results interpretation: Verified all documentation Verification and Attestation of Medical Student E/M Service A medical student performed and documented this service in my presence. I reviewed and verified all information documented by the medical student and made modifications to such information, when appropriate. I personally performed the physical exam and medical decision making. Carmita Cosby, Apr 03, 2020,11:14 fourth-year student saw patient first and obtained the history and physical and presented the patient to me. The patient was then seen by myself in the presence of the student and I performed a complete history and physical exam with the student in my presence. Patient history and plan of care discussed with the student. EMEKA MAURER, Apr 03, 2020 09:05 CARMITA COSBY MD Apr 03, 2020 09:53
--- NOTE | 2020-04-03 10:00 | NUR ---
TEMP 37.7 ALERT AND COOPERATIVE. [id number]
--- NOTE | 2020-04-03 10:36 | Diagnostic Imaging Report ---
HISTORY: Fever, chest pain. COMPARISON: 04/02/2020. TECHNIQUE: Frontal view of the chest. FINDINGS: There are new airspace opacities in the left midlung and left lung base. No pleural effusion or pneumothorax is seen. The cardiac silhouette is normal in size. IMPRESSION: 1. New airspace opacities in the left midlung and left lung base, consistent with pneumonia given the patient's history. Dictated by: Dictated on workstation # [id number]
[2020-04-03] MEDS ORDERED: CATHETER FLUSH 10 ML SYR IV PRN (11:30)
[2020-04-03] MEDS: cefTRIAXone FOR IV USE 1,000 MG in WATER (STERILE) FOR INJECTION 10 ML IV SCH (11:37)
[2020-04-03] MEDS: AZITHROMYCIN INJECTION 500 MG in NS (IVPB) 250 ML IV SCH (11:38)
--- NOTE | 2020-04-03 12:32 | Cardiology Progress Note ---
Subjective Date Seen by Provider: Apr 03, 2020 Time Seen by Provider: 12:29 Subjective/Events-last exam Patient is laying down in bed, no new complaint, having some chest pain with deep inspiration Review of Systems General: No Chills, No Night Sweats, No Fatigue, No Malaise, No Appetite, No Other HEENT: No Head Aches, No Visual Changes, No Eye Pain, No Ear Pain, No Dysphasia, No Sinus Congestion, No Post Nasal Drip, No Sore Throat, No Other Pulmonary: Dyspnea; No Cough, No Pleuritic Chest Pain, No Other Cardiovascular: Chest Pain; No: Palpitations, Orthopnea, Paroxysmal Noc. Dyspnea, Edema, Lt Headedness, Other Objective-Cardiology Exam Last Set of Vital Signs Vital Signs 04/02/20 04/03/20 04/03/20 20:56 09:31 11:00 Temp 38.8 Pulse 103 Resp 19 B/P (MAP) 98/79 (85) Pulse Ox 96 O2 Delivery Room Air O2 Flow Rate 2.00 Capillary Refill : Less Than 3 Seconds I&O Intake and Output 04/03/20 00:00 Intake Total 1600 ml Balance 1600 ml IV Total 1600 ml Daily Weight Change No No General: Alert, Cooperative HEENT: PERRLA Neck: No Thyromegaly Lungs: Normal Air Movement Heart: Other (atrial flutter) Abdomen: No Tenderness, No Hepatosplenomegaly, No Masses Extremities: No Edema, Normal Pulses, No Tenderness/Swelling Skin: No Significant Lesion Neuro: Normal Speech, Normal Tone, Sensation Intact Psych/Mental Status: Mental Status NL, Mood NL Results Lab Laboratory Tests 04/02/20 18:38 04/03/20 05:02 A/P-Cardiology Admission Diagnosis Atrial flutter Tachycardia Chest pain Hypertension Assessment/Plan Atrial flutter with variable response, improved with Cardizem drip but had few episode of hypotension. I will start oral diltiazem and oral Lopressor and evaluate tolerance and response Patient was started on oral anticoagulation to reduce the risk of stroke Fever, septic workup initiated, COVID testing negative, influenza A and B pending. Managed by primary care team Palpitation, secondary to tachycardia. Continue to monitor Chest pain, nonspecific etiology, atypical in presentation, cardiac enzymes neg ative. Continue to monitor Hypertension, labile blood pressure, episodes of hypotension. Continue to monitor blood pressure after initiating oral medication Methamphetamine abuse, tobacco use. Educated on avoiding illicit drug use Clinical Quality Measures AMI/AHF: ASA po Prior to arrival: Yes DVT/VTE Risk/Contraindication: Risk Factor Score Per Nursin RFS Level Per Nursing on Admit: 2=Moderate MICHELLE HILLMAN MD Apr 03, 2020 12:32
[2020-04-03] MEDS: morphine INJ 4 MG/ML 1 ML (VIAL/SYRINGE) IVP PRN (17:09)
--- NOTE | 2020-04-03 17:19 | NUR ---
TEMP 37.9 C/O OF PAIN WHEN DEEP BREATHING. MORPHINE 2 MG GIVEN IV SLOWLY AND TYLENOL GIVEN FOR FEVER.
[2020-04-03 17:28] LABS: BILIRUBIN,URINE NEGATIVE (NEGATIVE); CLARITY,URINE CLEAR; COLOR,URINE YELLOW; GLUCOSE, URINE (UA) NEGATIVE (NEGATIVE); KETONES,URINE NEGATIVE (NEGATIVE); LEUKOCYTE ESTERASE ,URINE NEGATIVE (NEGATIVE); NITRITE,URINE NEGATIVE (NEGATIVE); PROTEIN,URINE NEGATIVE (NEGATIVE)
--- NOTE | 2020-04-03 17:30 | NUR ---
TEMP=38.9
[2020-04-03 17:46] LABS: BACTERIA,URINE NEGATIVE /HPF; RBC,URINE 0-2 /HPF
--- NOTE | 2020-04-03 18:59 | NUR ---
TEMP 37.9
[2020-04-03] MEDS: APIXABAN 5 MG (ELIQUIS) TABLET PO SCH (20:58)
[2020-04-03] MEDS: meTOprolol TARTRATE 25 MG (LOPRESSOR) TABLET PO SCH (21:04)
[2020-04-04] VITALS (12 sets, daily range): BP systolic 91–111; BP diastolic 54–80
[2020-04-04] MEDS: LACTATED RINGERS 1,000 ML IV SCH ×3 (05:55→23:08)
[2020-04-04] MEDS: meTOprolol TARTRATE 25 MG (LOPRESSOR) TABLET PO SCH ×2 (08:48→20:44)
[2020-04-04] MEDS: APIXABAN 5 MG (ELIQUIS) TABLET PO SCH ×2 (08:49→20:44)
[2020-04-04] MEDS: ASPIRIN E.C. 81 MG (ECOTRIN) TAB PO SCH (08:49)
[2020-04-04] MEDS ORDERED: NS IV 1000 ML 1,000 ML IV ONE (09:43)
--- NOTE | 2020-04-04 09:43 | Cardiology Progress Note ---
Subjective Date Seen by Provider: Apr 04, 2020 Time Seen by Provider: 09:41 Subjective/Events-last exam Patient is laying down in bed, feeling better. No new complaint Review of Systems General: No Chills, No Night Sweats, No Fatigue, No Malaise, No Appetite, No Other HEENT: No Head Aches, No Visual Changes, No Eye Pain, No Ear Pain, No Dysphasia, No Sinus Congestion, No Post Nasal Drip, No Sore Throat, No Other Pulmonary: No Dyspnea, No Cough, No Pleuritic Chest Pain, No Other Cardiovascular: No: Chest Pain, Palpitations, Orthopnea, Paroxysmal Noc. Dyspnea, Edema, Lt Headedness, Other Objective-Cardiology Exam Last Set of Vital Signs Vital Signs 04/04/20 04/04/20 04/04/20 11:55 16:08 16:13 Temp 37.2 Pulse 84 Resp 16 B/P (MAP) 97/73 (81) Pulse Ox 97 O2 Delivery Room Air O2 Flow Rate 10.00 Capillary Refill : Less Than 3 Seconds I&O Intake and Output 04/04/20 00:00 Intake Total 4060 ml Output Total 1475 ml Balance 2585 ml Intake Oral 1050 ml IV Total 3010 ml Output Urine Total 1475 ml General: Alert, Cooperative HEENT: PERRLA Neck: No Thyromegaly Lungs: Clear to Auscultation, Normal Air Movement Heart: Normal S1, Normal S2, Other (atrial flutter) Abdomen: Normal Bowel Sounds, No Tenderness, No Hepatosplenomegaly, No Masses Extremities: No Clubbing, No Cyanosis, No Edema, Normal Pulses, No Tenderness/Swelling Skin: No Rashes, No Significant Lesion Neuro: Normal Gait, Normal Speech, Strength at 5/5 X4 Ext, Normal Tone, Sensation Intact Psych/Mental Status: Mental Status NL, Mood NL Results Lab A/P-Cardiology Admission Diagnosis Atrial flutter Tachycardia Chest pain Hypertension Assessment/Plan Atrial flutter with variable response, heart rate is better but increased significantly with minimal movement. Had breakfast today, I am planning to proceed with RICKEY and electrical cardioversion later this afternoon Patient was started on oral anticoagulation to reduce the risk of stroke Fever, septic workup initiated, COVID testing negative, and at this time management by primary care team Palpitation, secondary to tachycardia. Continue to monitor Chest pain, nonspecific etiology, atypical in presentation, cardiac enzymes negative. Continue to monitor Hypertension, labile blood pressure, episodes of hypotension. Continue to monitor blood pressure after initiating oral medication Methamphetamine abuse, tobacco use. Educated on avoiding illicit drug use Addendum on April 04, 2020 at 430 p.m., RICKEY was done showing normal left ventricle and left ventricular size, normal left atrium, there is an echogenic density noted at the left atrial appendage suspicious of thrombus. Normal right atrium and right ventricle, no septal defect noted, mitral valve, tricuspid valve, aortic valve and pulmonic valve were functioning normally, no vegetation was noted. I would continue with rate controlling medication, cannot tolerate higher dose of beta blockers or calcium blockers. I will digoxin. Monitor tolerance and response Clinical Quality Measures AMI/AHF: ASA po Prior to arrival: Yes DVT/VTE Risk/Contraindication: Risk Factor Score Per Nursin RFS Level Per Nursing on Admit: 2=Moderate MICHELLE HILLMAN MD Apr 04, 2020 9:42 am
--- NOTE | 2020-04-04 10:51 | NUR ---
SPOKE WITH THE PT TO COMPLETE THE MED REC PT DENIES TAKING ANY PRESCRIPTION OR OTC MEDICATIONS, THEREFORE I SET THE MED REC "NO MEDICATIONS".
[2020-04-04] MEDS: AZITHROMYCIN INJECTION 500 MG in NS (IVPB) 250 ML IV SCH (11:53)
[2020-04-04] MEDS: cefTRIAXone FOR IV USE 1,000 MG in WATER (STERILE) FOR INJECTION 10 ML IV SCH (11:53)
[2020-04-04] MEDS ORDERED: LIDOCAINE 2% VISCOUS 15 ML UDC ONE ×2 (12:58→15:39)
--- NOTE | 2020-04-04 13:56 | Progress Note ---
Subjective Subjective/Events-last exam Patient doing well this AM. States that he is still having some shortness of breath with any activity. Denies any previous h/o A fib. No currently having any chest pain. Review of Systems Cardiovascular: Palpitations; No: Chest Pain Gastrointestinal: No: Nausea, Vomiting, Abdominal Pain Neurological: No: Weakness, Incoordination Objective Exam Last Set of Vital Signs Vital Signs Date Time Temp Pulse Resp B/P (MAP) Pulse Ox O2 Delivery O2 Flow Rate FiO2 04/04/20 12:59 83 04/04/20 11:55 37.2 16 111/80 (90) 96 04/04/20 08:21 Room Air 04/02/20 20:56 2.00 Capillary Refill : Less Than 3 Seconds I&O Intake and Output 04/03/20 23:59 Intake Total 4060 ml Output Total 1475 ml Balance 2585 ml Intake Oral 1050 ml IV Total 3010 ml Output Urine Total 1475 ml General: Alert, Oriented X3, Cooperative, No Acute Distress HEENT: Mucous Memb Moist/[place] Lungs: Clear to Auscultation, Normal Air Movement Heart: Regular Rate, No Murmurs Abdomen: Normal Bowel Sounds, Soft, No Tenderness, No Masses Extremities: No Edema, No Tenderness/Swelling Skin: No Rashes, No Breakdown Neuro: Normal Speech, Strength at 5/5 X4 Ext, Sensation Intact, Cranial Nerves 3-12 NL Results/Procedures Lab Laboratory Tests 04/03/20 17:10: Urine Color YELLOW, Urine Clarity CLEAR, Urine pH 6.0, Urine Specific [place] 1.015L, Urine Protein NEGATIVE, Urine Glucose (UA) NEGATIVE, Urine Ketones NEGATIVE, Urine Nitrite NEGATIVE, Urine Bilirubin NEGATIVE, Urine Urobilinogen 1.0, Urine Leukocyte Esterase NEGATIVE, Urine RBC (Auto) 2+H, Urine RBC 0-2, Urine WBC NONE, Urine Squamous Epithelial Cells NONE, Urine Crystals NONE, Urine Bacteria NEGATIVE, Urine Casts NONE, Urine Mucus NEGATIVE, Urine Culture Indicated NO Microbiology 04/03/20 Influenza Types A,B Antigen ([place]) - Final, Complete Assessment/Plan Assessment/Plan (1) Atrial flutter with rapid ventricular response Status: Acute Assessment & Plan: 04/04: Cardiology consulted, patient started on OAC, Plan for RICKEY later this afternoon (2) LLL pneumonia Status: Acute Assessment & Plan: 10/26: Will continue azithromycin and Rocephin Qualifiers: Qualified Codes: J18.9 - Pneumonia, unspecified organism (3) Tobacco abuse Status: Chronic Assessment & Plan: - Discussed the need for cessation (4) Substance abuse Status: Chronic Assessment & Plan: - HIV/HepC pending, discussed he need for cessation with his cardiac problems Clinical Quality Measures AMI/AHF: ASA po Prior to arrival: Yes DVT/VTE Risk/Contraindication: Risk Factor Score Per Nursin RFS Level Per Nursing on Admit: 2=Moderate SOLITARIO KEMP MD Apr 04, 2020 13:56
[2020-04-04] MEDS ORDERED: proPOfol 200 MG/20 ML (DIPRIVAN) VIAL IV ONE (15:05)
--- NOTE | 2020-04-04 15:18 | NUR ---
PT TO [employer] VIA BED ACCOMPANIED BY [employer] STAFF.
[2020-04-04] MEDS ORDERED: NS IV 1000 ML 1,000 ML ONE (15:27)
[2020-04-04 15:28] LABS: HEPATITIS C ANTIBODY C Non-Reactive (Non-Reactive)
[2020-04-04] MEDS ORDERED: MIDAZOLAM 2 MG/2 ML (VERSED) VIAL ONE (15:32)
--- NOTE | 2020-04-04 15:34 | NUR ---
PT BROUGHT DOWN TO MANAGER OF [employer] [facility] FOR CARDIOVERSION/ RICKEY WITH DR HILLMAN AND SUKH RIOS.
--- NOTE | 2020-04-04 16:25 | Discharge Summary ---
Diagnosis/Chief Complaint Date of Admission Apr 02, 2020 at 19:54 Date of Discharge 04/04/2020 Admission Diagnosis Admission Diagnosis See problem list Discharge Diagnosis See Below Problems/Diagnosis: (1) Atrial flutter with rapid ventricular response Assessment & Plan: 04/04: Cardiology consulted, patient started on OAC, Plan for RICKEY later this afternoon, 1620: updated on patient that he has what looks to be a small thrombus so no cardioversion, Dr Marie will see patient in 2 weeks, Digoxin added 04/05: ok to d/c home per cardiology, medications sent to repository Status: Acute (2) LLL pneumonia Assessment & Plan: 04/04: Will continue azithromycin and Rocephin Qualifiers: Qualified Codes: J18.9 - Pneumonia, unspecified organism Status: Acute (3) Tobacco abuse Assessment & Plan: - Discussed the need for cessation Status: Chronic (4) Substance abuse Assessment & Plan: - HIV/HepC pending, discussed he need for cessation with his cardiac problems Status: Chronic Discharge Summary-Simple/Stand Procedures 04/04/20: RICKEY by Dr Marie Consultations Dr Marie: Cardiology Discharge Physical Examination Allergies: Coded Allergies: No Known Drug Allergies (Unverified , 04/22/19) Vitals & I&Os Vital Sign - Last 12Hours Date Time Temp Pulse Resp B/P (MAP) Pulse Ox O2 Delivery O2 Flow Rate FiO2 04/04/20 15:36 87 97/67 (77) 96 Room Air 04/04/20 11:55 37.2 16 04/02/20 20:56 2.00 Intake and Output 04/03/20 23:59 Intake Total 1800 ml Output Total 875 ml Balance 925 ml General Appearance: Alert, Oriented X3, Cooperative, No Acute Distress Respiratory: Clear to Auscultation, Normal Air Movement Cardiovascular: Regular Rate, No Murmurs Abdominal: Normal Bowel Sounds, Soft, No Tenderness, No Masses Extremities: No Edema, No Tenderness/Swelling Skin: No Rashes Neuro: Normal Speech, Strength at 5/5 X4 Ext, Cranial Nerves 3-12 NL Psych/Mental Status: Mental Status NL, Mood NL Hospital Course Was the Problem List Reviewed?: Yes See final discharge diagnosis. Discussion & Recommendations 59 yo M that was admitted for chest pain and found to have atrial flutter with RVR. Seen by cardiology and started on rate control medications. Dr Marie attempted RICKEY with cardioversion however small thrombus may be present so he will see patient in 2 weeks. Discharge Condition at discharge stable Instructions to patient/family Please see electronic discharge instructions given to patient. Discharge Medications Reviewed and agree with Discharge Medication list on patient's Discharge Instruction sheet Clinical Quality Measures AMI/AHF: ASA po Prior to arrival: Yes DVT/VTE Risk/Contraindication: Risk Factor Score Per Nursin RFS Level Per Nursing on Admit: 2=Moderate SOLITARIO KEMP MD Apr 04, 2020 16:25
[2020-04-04] MEDS ORDERED: DIGOXIN 0.25 MG/ML (LANOXIN) 2 ML AMP IV NR (16:30)
--- NOTE | 2020-04-04 16:54 | NUR ---
1630 PT BACK FROM [facility], PT DROWSY AWAKENS TO VERBAL STIMULI, CALL LIGHT AND PERSONAL ITEMS WITHIN REACH WILL CONTINUE TO MONITOR.
[2020-04-04] MEDS: morphine INJ 4 MG/ML 1 ML (VIAL/SYRINGE) IVP PRN (23:25)
[2020-04-05 03:03] VITALS: BP 110/62
[2020-04-05 03:27] LABS: BASOPHILS % (AUTO) 0 % (0-10); EOSINOPHILS # (AUTO) 0.2 10^3/uL (0.0-0.3); EOSINOPHILS % (AUTO) 2 % (0-10); HEMATOCRIT 34 % (40-54); HEMOGLOBIN 11.1 g/dL (13.3-17.7); LYMPHOCYTES # (AUTO) 1.7 10^3/uL (1.0-4.0); LYMPHOCYTES % (AUTO) 16 % (12-44); MEAN CORPUSCULAR HEMOGLOBIN 29 pg (25-34); MEAN CORPUSCULAR HGB CONC 33 g/dL (32-36); MEAN CORPUSCULAR VOLUME 89 fL (80-99); MEAN PLATELET VOLUME 9.1 fL (9.0-12.2); MONOCYTES # (AUTO) 0.6 10^3/uL (0.0-1.0); MONOCYTES % (AUTO) 5 % (0-12); NEUTROPHILS # (AUTO) 7.9 10^3/uL (1.8-7.8); NEUTROPHILS % (AUTO) 76 % (42-75); PLATELET COUNT 220 10^3/uL (130-400); WHITE BLOOD COUNT 10.5 10^3/uL (4.3-11.0)
[2020-04-05 03:46] LABS: BUN/CREATININE RATIO 16; CALCIUM 8.3 MG/DL (8.5-10.1); CARBON DIOXIDE 23 MMOL/L (21-32); CHLORIDE 106 MMOL/L (98-107); CREATININE SERUM 0.93 MG/DL (0.60-1.30); GFR ESTIMATED > 60; GLUCOSE 100 MG/DL (70-105); SODIUM 138 MMOL/L (135-145)
[2020-04-05 03:52] VITALS: BP 111/65
[2020-04-05 05:09] VITALS: BP 120/78
--- NOTE | 2020-04-05 07:20 | NUR ---
DR HILLMAN NOTIFIED THIS NURSE PT MAY DC FROM CARDIAC STANDPOINT.
[2020-04-05 08:35] VITALS: BP 115/67
[2020-04-05] MEDS: ASPIRIN E.C. 81 MG (ECOTRIN) TAB PO SCH (08:49)
[2020-04-05] MEDS: meTOprolol TARTRATE 25 MG (LOPRESSOR) TABLET PO SCH (08:49)
[2020-04-05] MEDS: APIXABAN 5 MG (ELIQUIS) TABLET PO SCH (08:49)
--- NOTE | 2020-04-05 08:58 | Cardiology Progress Note ---
Subjective Date Seen by Provider: Apr 05, 2020 Time Seen by Provider: 08:56 Subjective/Events-last exam Patient is laying down in bed, feeling better. No new complaint Review of Systems General: No Chills, No Night Sweats, No Fatigue, No Malaise, No Appetite, No Other HEENT: No Head Aches, No Visual Changes, No Eye Pain, No Ear Pain, No Dysphasia, No Sinus Congestion, No Post Nasal Drip, No Sore Throat, No Other Pulmonary: No Dyspnea, No Cough, No Pleuritic Chest Pain, No Other Cardiovascular: No: Chest Pain, Palpitations, Orthopnea, Paroxysmal Noc. Dyspnea, Edema, Lt Headedness, Other Objective-Cardiology Exam Last Set of Vital Signs Vital Signs 04/04/20 04/05/20 16:08 08:35 Temp 37.1 Pulse 86 Resp 17 B/P (MAP) 115/67 (83) Pulse Ox 97 O2 Delivery Room Air O2 Flow Rate 10.00 Capillary Refill : Less Than 3 Seconds I&O Intake and Output 04/05/20 00:00 Intake Total 1215 ml Output Total 2600 ml Balance -1385 ml Intake Oral 1215 ml Output Urine Total 2600 ml General: Alert, Oriented X3, Cooperative, No Acute Distress HEENT: Atraumatic, PERRLA, Mucous Memb Moist/Gro[place] Neck: Supple, No JVD, No Thyromegaly Lungs: Clear to Auscultation, Normal Air Movement Heart: Normal S1, Normal S2, No Murmurs, Other (atrial flutter) Abdomen: Normal Bowel Sounds, Soft, No Tenderness, No Masses Extremities: No Clubbing, No Cyanosis, No Edema, No Tenderness/Swelling Skin: No Rashes, No Breakdown Neuro: Normal Gait, Normal Speech, Strength at 5/5 X4 Ext, Cranial Nerves 3-12 NL Psych/Mental Status: Mental Status NL, Mood NL Results Lab Laboratory Tests 04/05/20 03:04 A/P-Cardiology Admission Diagnosis Atrial flutter Tachycardia Chest pain Hypertension Assessment/Plan Atrial flutter with variable response, RICKEY was done on April 04, 2020 showing questionable left atrial appendage thrombus. We'll continue with rate controlling medication, continue on diltiazem, metoprolol and I added digoxin yesterday. Heart rate is better controlled. Okay for discharge Patient was started on oral anticoagulation to reduce the risk of stroke Fever, septic workup initiated, COVID testing negative, and at this time management by primary care team Palpitation, secondary to tachycardia. Continue to monitor Chest pain, nonspecific etiology, atypical in presentation, cardiac enzymes negative. Continue to monitor Hypertension, labile blood pressure, episodes of hypotension. Continue to monitor blood pressure after initiating oral medication Methamphetamine abuse, tobacco use. Educated on avoiding illicit drug use Clinical Quality Measures AMI/AHF: ASA po Prior to arrival: Yes DVT/VTE Risk/Contraindication: Risk Factor Score Per Nursin RFS Level Per Nursing on Admit: 2=Moderate MICHELLE HILLMAN MD Apr 05, 2020 8:58 am
[2020-04-05] MEDS ORDERED: DIGOXIN 0.25 MG (LANOXIN) TAB PO SCH (09:00)
--- NOTE | 2020-04-05 09:55 | Diagnostic Imaging Report ---
INDICATION: Chest pain and fever. TIME OF EXAM: 9:35 AM. COMPARISON: 04/03/2020. FINDINGS: The heart size normal. The left perihilar parenchymal opacity persists and shows slight improvement since two days earlier. The right lung is clear. There is trace pleural fluid on the left. There is a probable infiltrate in the medial left base as well. No pneumothorax is seen. IMPRESSION: The left-sided infiltrates or atelectasis show a slight improvement over two days. Continued followup to confirm complete clearing is recommended. Dictated by: Dictated on workstation # [id number]
[2020-04-05] MEDS: LACTATED RINGERS 1,000 ML IV SCH (11:03)
[2020-04-05] MEDS: AZITHROMYCIN INJECTION 500 MG in NS (IVPB) 250 ML IV SCH (11:12)
[2020-04-05] MEDS: cefTRIAXone FOR IV USE 1,000 MG in WATER (STERILE) FOR INJECTION 10 ML IV SCH (11:13)
[2020-04-05] MEDS ORDERED: METO-333 PO (11:14)
[2020-04-05] MEDS ORDERED: ASPI-1238 PO (11:14)
[2020-04-05] MEDS ORDERED: APIX5TAB PO (11:14)
[2020-04-05] MEDS ORDERED: NITR0.4T42 SL (11:14)
[2020-04-05] MEDS ORDERED: DILT30TA PO (11:14)
[2020-04-05] MEDS ORDERED: DIGO250T15 PO (11:14)
--- NOTE | 2020-04-05 11:15 | Discharge Summary ---
Discharge [facility] Reconcile Patient Problems Problems Reviewed?: Yes Discharge Medications New, Converted or Re-Newed RX: Transmitted to Pharmacy (And others to our repository at [facility]) New Medications: Apixaban (Eliquis) 5 Mg Tablet 5 MG PO BID, #60 TAB Aspirin (Aspirin EC) 81 Mg Tablet.dr 81 MG PO DAILY, #30 TAB Digoxin (Digox) 250 Mcg Tablet 0.25 MG PO DAILY, #30 TAB Diltiazem HCl (Diltiazem HCl) 30 Mg Tablet 30 MG PO Q6HR, #120 TAB Metoprolol Tartrate (Metoprolol Tartrate) 25 Mg Tablet 12.5 MG PO BID, #60 TAB Nitroglycerin (Nitroglycerin) 0.4 Mg Tab.subl 0.4 MG SL UD PRN for CHEST PAIN (ANGINA), #10 TAB Patient Instructions Goal/Follow Up Appt: F.u with Dr Marie in 2 weeks F.u with PCP [facility] next week Activity & Diet Discharge Diet: Cardiac Diet Activity as Tolerated: Yes SOLITARIO KEMP MD Apr 05, 2020 11:15
[2020-04-05] MEDS: ACETAMINOPHEN 500 MG TAB (TYLENOL) PO PRN (12:20)
--- NOTE | 2020-04-05 12:39 | NUR ---
Spoke with primary care nurse regarding discharge and any anticipated needs. She reported that she has a taxi voucher for the patient and will let the taxi know that he needs to go to the [facility] before they take him home so he can tow picker his needed medications. We visited about the patient needing ask for Dr. Pinedo's nurse when he arrives at [facility] and that he will have digoxin that he will need to tow picker on the family practice side and then move to the registration side to tow picker the rest of his needed medications at the repository. No further needs voiced or noted at this time.
--- NOTE | 2020-04-05 13:00 | NUR ---
THIS NURSE EDUCATED PT ON DISCHARGE INSTRUCTION. PT STATED UNDERSTANDING. PT HAS A TAXI COMING TO PICK HIM UP AND TAKE HIM TO [facility] TO GET HIS MEDICATIONS AND THEN HOME. PT STATED UNDERSTANDING ON WHERE TO GET HIS MEDICATIONS AND TO SEE DR KEMP'S NURSE BEFORE HE LEAVES TO MAKE SURE HE GOT ALL HIS MEDICATIONS.
[2020-04-05 13:27] VITALS: BP 115/67
--- NOTE | 2020-04-06 07:54 | Anesthesia-General Post-Op ---
MAC Significant Intra-Op Events Notes Late entry from 04/04 Patient Condition Mental Status/LOC: Same as Preop Cardiovascular: Satisfactory Nausea/Vomiting: Absent Respiratory: Satisfactory Pain: Controlled Complications: Absent Post Op Complications Complications None Follow Up Care/Instructions Patient Instructions None needed. Anesthesiology Discharge Order Discharge Order Patient is doing well, no complaints, stable vital signs, no apparent adverse anesthesia problems. No complications reported per nursing. SUKH LEÓN CRNA Apr 06, 2020 07:54
== END 2020-04-05 13:27 | disposition home or self-care (01) | DRG 308 ==
LOC: EDUNIT# 18:25 → ER 18:26 → CSD 19:54 → EDPENDDISDT 04-05 18:30
PROVIDERS: ADMIT Family Medicine; ATTEND Family Medicine
DX: I48.91 Unspecified atrial fibrillation (principal); J18.9 Pneumonia, unspecified organism; I48.92 Unspecified atrial flutter; I10 Essential (primary) hypertension; F17.210 Nicotine dependence, cigarettes, uncomplicated; F15.10 Other stimulant abuse, uncomplicated; Z20.828 Contact with and (suspected) exposure to other viral communicable diseases
CPT/HCPCS: 36415; 71045; 71046; 80048; 80053; 80061; 80306; 81000; 83735; 83874; 84443; 84484; 85007; 85025; 85027; 85379; 85610; 85730; 86703; 86803; 87040; 87635; 87804; 93005; 93041; 93306; 93312; 93320; 93325